=== PATIENT | female | born 1940 | race Caucasian/White ===

== ENCOUNTER 2019-06-16 09:10 | Emergency (ER) | payer MEDICARE ==
[~2019-06-16] VITALS: Ht 152.4 cm; Wt 78.7 kg
--- NOTE | 2019-06-16 09:47 | NUR ---
PT PLACED IN GOWN. CXR ORDERED. PT R/O SOB, PRODUCTIVE COUGH FOR SEVERAL WEEKS. PT STATES DIZZINESS ONSET YESTERDAY. BP CUFF, PULSE OX IN PLACE. CALL LIGHT WITHIN REACH, WARM BLANKET PROVIDED. VSS, BP IMPROVED FROM TRIAGE/UPDATED IN COMPUTER.
[2019-06-16 11:00] VITALS: BP 144/72
== END 2019-06-16 11:50 | disposition home or self-care (01) ==
LOC: ED 11:48
DX: R05 Cough (principal); R06.02 Shortness of breath; I10 Essential (primary) hypertension; Z90.710 Acquired absence of both cervix and uterus
CPT/HCPCS: 71046; 93005; 99283

== ENCOUNTER → 2020-02-17 | Outpatient (CLI) | payer MEDICARE | END | disposition home or self-care (01) | PROVIDERS: ATTEND Family Medicine | DX: M41.86 Other forms of scoliosis, lumbar region (principal); M47.816 Spondylosis without myelopathy or radiculopathy, lumbar region; M25.552 Pain in left hip; M25.551 Pain in right hip | CPT/HCPCS: 72100; 73523 ==

== ENCOUNTER 2020-07-15 13:36 | Emergency (ER) | payer MEDICARE ==
[~2020-07-15] VITALS: Ht 149.9 cm; Wt 76.5 kg
--- NOTE | 2020-07-15 14:06 | NUR ---
PATIENT WALKED BACK FROM TRIAGE WITH CHIEF C/O "MY BLOOD PRESSURE IS ALL OVER THE PLACE." PATIENT ALSO REPORTS ALLERGIES AND COUGING ALOT, WITH POST-NASAL DRIP FOR A COULE MONTHS. PATIENT'S BP NOW IS 186/96. NADN, OTHER VSS. ERMD AT BEDSIDE FOR EVALUATION.
[2020-07-15] MEDS ORDERED: AMLODIPINE 5 MG TABLET ONE (14:28)
[2020-07-15] MEDS ORDERED: AMLODIPINE 5 MG TABLET PO ONE (14:30)
[2020-07-15 14:41] LABS: BASOPHILS % (AUTO) 1 % (0-1); EOSINOPHILS % (AUTO) 2 % (1-7); LYMPHOCYTES % (AUTO) 19 % (22-44); MEAN CORPUSCULAR HGB CONC 34.2 g/dL (32.4-35.8); MEAN PLATELET VOLUME 7.9 fL (7.4-10.4); MONOCYTES % (AUTO) 9 % (2-9); NEUTROPHILS % (AUTO) 69 % (42-75); PLATELET COUNT 232 x10^3/uL (130-400); RED BLOOD COUNT 4.75 x10^6/uL (3.82-5.3); RED CELL DISTRIBUTION WIDTH 13.8 % (9.6-15.2)
[2020-07-15 14:51] LABS: ALBUMIN 3.9 g/dL (3.4-5.0); ANION GAP 4 mmol/L (5-15); CALCIUM 9.6 mg/dL (8.5-10.1); CHLORIDE 102 mmol/L (98-107); CREATININE 1.12 mg/dL (0.55-1.02); MD NO
--- NOTE | 2020-07-15 14:57 | NUR ---
ERMD AT BEDSIDE TO DISCUSS POC.
[2020-07-15 14:59] VITALS: BP 156/72
--- NOTE | 2020-07-15 15:11 | NUR ---
Patient given discharge instructions and prescription and they have confirmed that they understand the instructions. Patient stable and ambulatory with steady gait from ED to private vehicle.
== END 2020-07-15 15:12 | disposition home or self-care (01) ==
LOC: ED 14:28
DX: I10 Essential (primary) hypertension (principal); R94.31 Abnormal electrocardiogram [ECG] [EKG]
CPT/HCPCS: 36415; 80048; 82040; 85025; 93005; 99284